=== PATIENT | male | born 1945 | race Caucasian/White ===

== ENCOUNTER 2021-05-04 21:14 | Emergency (ER) | payer MEDICARE, OTHER ==
[2021-05-04] MEDS ORDERED: Piperacillin/Tazobactam 4.5 GM VIAL ONE (22:46)
[2021-05-04] MEDS ORDERED: Magnesium 2 GM/50 ML BAG (IN WATER) ONE (22:46)
[2021-05-04] MEDS ORDERED: Norepinephrine 4 MG/4 ML VIAL ONE ×2 (22:54→22:58)
[2021-05-04] MEDS ORDERED: Sodium Bicarb 50 MEQ/50 ML Abboject 8.4% SYRINGE ONE (23:08)
== END 2021-05-04 23:45 | disposition short-term general hospital (02) ==
LOC: BURERS 21:14
DX: J18.9 Pneumonia, unspecified organism (principal); I11.0 Hypertensive heart disease with heart failure; I50.9 Heart failure, unspecified; N28.9 Disorder of kidney and ureter, unspecified; R09.02 Hypoxemia; E11.9 Type 2 diabetes mellitus without complications; I25.10 Atherosclerotic heart disease of native coronary artery without angina pectoris; Z20.822 Contact with and (suspected) exposure to COVID-19; Z79.84 Long term (current) use of oral hypoglycemic drugs; Z79.899 Other long term (current) drug therapy
CPT/HCPCS: 70450; 71045; 75710; 80053; 80306; 80307; 82330; 82435; 82550; 82803; 83605; 83690; 83735; 83880; 84132; 84295; 84484; 85014; 85025; 85379; 85610; 85730; 86140; 87040; 87086; 87149 ×2; 87804 ×2; 93005; 94760; U0002; 36415; 51701; 81003; 81015; 82274; 96374; 96375; J2543; J3370; J3475